=== PATIENT | male | born 2000 | race Caucasian/White ===

== ENCOUNTER 2024-01-27 21:34 | Emergency (ER) | payer OTHER ==
[2024-01-27 21:49] VITALS: BP 132/85; PULSE 107; RESP 19; TEMP 99.1; BMI 28.1
[2024-01-27] MEDS ORDERED: SUCRALFATE 1 GM/10 ML UNIT DOSE CUPS ONE (21:52)
[2024-01-27] MEDS: SUCRALFATE 1 GM/10 ML UNIT DOSE CUPS PO ONE (22:03)
[2024-01-27 22:23] LABS: HEMOGLOBIN 16.3 G/dL (11.7-16.9); MCHC 33.3 g/dl (32.0-35.9); MEAN CELL VOLUME 87.2 fl (80-96); MEAN PLT VOLUME 9.9 fl (7.5-11.1); PLATELET COUNT 267.3 10^3/uL (134-434); RBC 5.62 10^6/uL (4.00-5.60); RDW 13.6 % (11.9-15.9); WHITE BLOOD COUNT 8.9 10^3/uL (4.0-10.8)
[2024-01-27 22:47] LABS: ALBUMIN 4.8 g/dl (3.4-5.0); ALK PHOS 58 U/L (45-117); ANION GAP 9 mmol/L (4-13); BILIRUBIN,TOTAL 0.9 mg/dl (0.2-1); CALCIUM 10.3 mg/dl (8.5-10.1); CHLORIDE 99 mmol/L (98-107); CO2 32 mmol/L (21-32); CREATININE 1.1 mg/dl (0.6-1.3); GLUCOSE,RANDOM 115 mg/dl (74-106); POTASSIUM 4.3 mmol/L (3.5-5.1); SGOT/AST 22 U/L (15-37); SGPT/ALT 30 U/L (7-52); SODIUM 140 mmol/L (136-145); TOT PROT 7.6 g/dl (6.4-8.2)
== END 2024-01-27 23:14 | disposition home or self-care (01) ==
LOC: FER 21:34
DX: K29.80 Duodenitis without bleeding (principal); R10.13 Epigastric pain
CPT/HCPCS: 36415; 71046-TC-FY; 80053; 83690; 85025; 99284-25

== ENCOUNTER 2024-01-31 08:05 | Emergency (ER) | payer OTHER ==
[2024-01-31 08:32] VITALS: BP 131/78; PULSE 93; RESP 18; TEMP 97.8; BMI 28.1
[2024-01-31] MEDS ORDERED: ACETAMINOPHEN INJECTION 100 ML IVPB ONE (08:35)
[2024-01-31] MEDS ORDERED: MAG HYDROX/AL HYDROX/SIMETH 30 ML UNIT-DOSE CUP ONE (08:35)
[2024-01-31] MEDS ORDERED: FAMOTIDINE 20 MG/50 ML IVPB 20 MG/50 ML MG IVPB ONE (08:35)
[2024-01-31] MEDS: MAG HYDROX/AL HYDROX/SIMETH 30 ML UNIT-DOSE CUP PO ONE (08:51)
[2024-01-31] MEDS: ACETAMINOPHEN 1000 MG/100 ML BAG IVPB ONE (08:51)
[2024-01-31] MEDS: FAMOTIDINE 20 MG/50 ML IVPB 20 MG/50 ML MG IVPB ONE (08:52)
[2024-01-31 09:05] LABS: HEMATOCRIT 47.5 % (35.4-49); HEMOGLOBIN 15.7 G/dL (11.7-16.9); MCH 28.3 pg (25.7-33.7); MEAN CELL VOLUME 85.6 fl (80-96); MEAN PLT VOLUME 10.1 fl (7.5-11.1); PLATELET COUNT 262.3 10^3/uL (134-434); RBC 5.55 10^6/uL (4.00-5.60); RDW 13.9 % (11.9-15.9); WHITE BLOOD COUNT 10.6 10^3/uL (4.0-10.8)
[2024-01-31 09:12] LABS: ALBUMIN 4.6 g/dl (3.4-5.0); BILIRUBIN,TOTAL 1.1 mg/dl (0.2-1); CALCIUM 9.9 mg/dl (8.5-10.1); CREATININE 0.9 mg/dl (0.6-1.3); POTASSIUM 3.7 mmol/L (3.5-5.1); TOT PROT 7.3 g/dl (6.4-8.2)
[2024-01-31 09:21] LABS: PLATELET ESTIMATE ADEQUATE
== END 2024-01-31 13:45 | disposition home or self-care (01) ==
LOC: FER 08:05
PROC: 3E033GC Introduction of Other Therapeutic Substance into Peripheral Vein, Percutaneous Approach (ICD-10-PCS; principal; 2024-01-31)
PROC: 3E033NZ Introduction of Analgesics, Hypnotics, Sedatives into Peripheral Vein, Percutaneous Approach (ICD-10-PCS; 2024-01-31)
DX: R16.0 Hepatomegaly, not elsewhere classified (principal); R10.13 Epigastric pain
CPT/HCPCS: 36415; 74177-TC; 76700-TC; 80053; 83690; 85027; 99285-25; J0131; Q9967

== ENCOUNTER 2024-02-03 03:10 | Observation (INO) | payer OTHER ==
[2024-02-03 03:18] VITALS: BMI 27.2
[2024-02-03] MEDS ORDERED: ACETAMINOPHEN INJECTION 100 ML IVPB ONE (03:51)
[2024-02-03] MEDS: ACETAMINOPHEN 1000 MG/100 ML BAG IVPB ONE (03:56)
[2024-02-03 04:49] LABS: INR 2.01 (0.83-1.09); POTASSIUM 3.9 mmol/L (3.5-5.1); PROTHROMBIN TIME (PATIENT) 22.3 SEC (9.7-13.0)
[2024-02-03 04:51] LABS: ALBUMIN 3.4 g/dl (3.4-5.0); BASO % 0.3 % (0-2.0); CALCIUM 9.2 mg/dL (8.5-10.1); HEMATOCRIT 43.2 % (35.4-49); HEMOGLOBIN 14.9 GM/dL (11.7-16.9); LYMPH % 5.9 % (8-40); MCH 28.6 pg (25.7-33.7); MCHC 34.4 g/dl (32.0-35.9); MEAN CELL VOLUME 83.2 fl (80-96); MEAN PLT VOLUME 11.3 fl (7.5-11.1); MONO % 15.4 % (3.8-10.2); NEUT % 78.4 % (42.8-82.8); PLATELET COUNT 274 10^3/uL (134-434); RDW 13.3 % (11.9-15.9); WHITE BLOOD COUNT 19.4 K/mm3 (4.0-10.0)
[2024-02-03 04:52] LABS: BLOOD UREA NITROGEN 7.3 mg/dL (7-18)
[2024-02-03 04:54] LABS: CREATININE 0.8 mg/dL (0.55-1.3)
[2024-02-03 04:56] LABS: BILIRUBIN,TOTAL 2.3 mg/dL (0.2-1); TOT PROT 7.4 g/dl (6.4-8.2)
[2024-02-03] MEDS: SODIUM CHLORIDE 1,000 ML IV STA (05:10)
[2024-02-03] MEDS: PIPERACILLIN/TAZOB 4.5 GM 4.5 GM in DEXTROSE 5%-WATER 100 ML IVPB ONE (05:10)
[2024-02-03 07:49] LABS: EPITHELIAL CELLS 0-5 /hpf
[2024-02-03] MEDS ORDERED: ACETAMINOPHEN 650 MG/20.3 ML ORAL SOLUTION (CUPS) PO PRN (14:25)
[2024-02-03] MEDS: SODIUM CHLORIDE 1,000 ML IV SCH (14:58)
[2024-02-03] MEDS: PANTOPRAZOLE SODIUM 40 MG VIAL IVPUSH SCH (15:09)
[2024-02-03] MEDS: PHYTONADIONE 10 MG/1 ML AMP SQ ONE (15:21)
[2024-02-03] MEDS: AMPICILLIN NA/SULBACTAM NA 3 GM in SODIUM CHLORIDE 100 ML IVPB SCH (17:28)
[2024-02-04] MEDS ORDERED: BUPIVACAINE HCL/PF 0.25% (2.5MG/ML) 10 ML VIAL ONE (09:10)
[2024-02-04] MEDS ORDERED: HEPARIN NA (PORCINE) 5,000 UNITS/ML 1ML VIAL ONE (09:10)
[2024-02-04] MEDS ORDERED: cefOXitin SODIUM 2 GM VIAL (RESTRICTED TO ID) IVPB ONE (09:10)
[2024-02-04 09:27] LABS: INR 1.69 (0.83-1.09); PROTHROMBIN TIME (PATIENT) 18.8 SEC (9.7-13.0)
[2024-02-04] MEDS ORDERED: KETOROLAC TROMETHAMINE 30 MG/1 ML VIAL ONE (10:30)
[2024-02-04] MEDS ORDERED: SUGAMMADEX SODIUM 200 MG/2 ML VIAL ONE (10:30)
[2024-02-04] MEDS ORDERED: PROPOFOL 20 ML ONE (10:30)
[2024-02-04] MEDS ORDERED: DEXAMETHASONE SOD PHOSPHATE 4 MG/1 ML VIAL ONE (10:30)
[2024-02-04] MEDS ORDERED: ROCURONIUM BROMIDE 50 MG/5 ML VIAL ONE ×2 (10:30→11:43)
[2024-02-04] MEDS ORDERED: MIDAZOLAM HCL 2 MG/2 ML SINGLE DOSE VIAL ONE (10:30)
[2024-02-04] MEDS ORDERED: ONDANSETRON 4 MG/2 ML VIAL ONE (10:30)
[2024-02-04] MEDS ORDERED: FENTANYL CITRATE/PF 50 MCG/ML VIAL ONE ×4 (10:30→13:28)
[2024-02-04] MEDS ORDERED: LIDOCAINE HCL/PF 2% SDV 5ML VIAL ONE (10:30)
[2024-02-04] MEDS ORDERED: methylPREDNISolone NA SUCC 125 MG/2 ML VIAL ONE (10:31)
[2024-02-04] MEDS ORDERED: SEVOFLURANE 250 ML BTL ONE (10:31)
[2024-02-04] MEDS: AMPICILLIN NA/SULBACTAM NA 3 GM/100 ML PRE-DOCKED IVPB ONE (10:57)
[2024-02-04] MEDS: BUPIVACAINE HCL/PF 0.25% (2.5MG/ML) 10 ML VIAL IJ ONE (11:05)
[2024-02-04] MEDS ORDERED: ONDANSETRON 4 MG/2 ML VIAL IVPUSH PRN ×2 (12:57→13:09)
[2024-02-04] MEDS ORDERED: oxyCODONE HCL 5 MG TABLET PO PRN ×3 (12:57→13:09)
[2024-02-04] MEDS ORDERED: LACTATED RINGERS SOLUTION 1,000 ML IV SCH ×2 (13:00→13:09)
[2024-02-04] MEDS: ACETAMINOPHEN 650 MG/20.3 ML ORAL SOLUTION (CUPS) PO SCH (13:30)
[2024-02-04] MEDS: AMPICILLIN NA/SULBACTAM NA 3 GM in SODIUM CHLORIDE 100 ML IVPB SCH (18:00)
[2024-02-04] MEDS: LACTATED RINGERS SOLUTION 1,000 ML/1,000 ML INFUS.BAG IV SCH (18:11)
[2024-02-05 08:05] LABS: BASO % 0.6 % (0-2.0); HEMATOCRIT 38.9 % (35.4-49); HEMOGLOBIN 13.1 GM/dL (11.7-16.9); LYMPH % 9.8 % (8-40); MCH 28.7 pg (25.7-33.7); MCHC 33.6 g/dl (32.0-35.9); MEAN CELL VOLUME 85.4 fl (80-96); MEAN PLT VOLUME 10.6 fl (7.5-11.1); MONO % 9.1 % (3.8-10.2); NEUT % 80.5 % (42.8-82.8); PLATELET COUNT 263 10^3/uL (134-434); RBC 4.55 M/mm3 (4.00-5.60); RDW 13.3 % (11.9-15.9); WHITE BLOOD COUNT 7.8 K/mm3 (4.0-10.0)
[2024-02-05 08:13] LABS: INR 1.5 (0.83-1.09)
[2024-02-05 08:18] LABS: POTASSIUM 4.5 mmol/L (3.5-5.1)
[2024-02-05 08:24] LABS: BLOOD UREA NITROGEN 8.9 mg/dL (7-18); CALCIUM 8.4 mg/dL (8.5-10.1); MAGNESIUM 2.1 mg/dL (1.8-2.4)
[2024-02-05 08:26] LABS: CREATININE 0.6 mg/dL (0.55-1.3); PHOSPHOROUS 3.8 mg/dL (2.5-4.9)
[2024-02-05 08:28] LABS: TOT PROT 5.5 g/dl (6.4-8.2)
[2024-02-05 08:32] LABS: BILIRUBIN,TOTAL 0.9 mg/dL (0.2-1)
[2024-02-05 08:41] LABS: ALBUMIN 2.4 g/dl (3.4-5.0)
[2024-02-05] MEDS: PANTOPRAZOLE SODIUM 40 MG VIAL IVPUSH SCH (09:43)
[2024-02-05] MEDS: oxyCODONE HCL 5 MG TABLET PO PRN (11:09)
[2024-02-05 15:48] VITALS: BP 121/70; PULSE 88; RESP 18; TEMP 98.6
[2024-02-05] MEDS: AMOX TR/POT CLAV 875MG/125MG TABLETS (FP) PO SCH (18:03)
== END 2024-02-05 18:41 | disposition home or self-care (01) ==
LOC: FER 03:10 → J8W 13:38
PROVIDERS: ADMIT Internal Medicine; ATTEND Nurse Practitioner Family
PROC: 0FT44ZZ Resection of Gallbladder, Percutaneous Endoscopic Approach (ICD-10-PCS; principal; 2024-02-03)
PROC: 0F9040Z Drainage of Liver with Drainage Device, Percutaneous Endoscopic Approach (ICD-10-PCS; 2024-02-03)
PROC: 3E03329 Introduction of Other Anti-infective into Peripheral Vein, Percutaneous Approach (ICD-10-PCS; 2024-02-03)
PROC: 3E033NZ Introduction of Analgesics, Hypnotics, Sedatives into Peripheral Vein, Percutaneous Approach (ICD-10-PCS; 2024-02-03)
PROC: 3E0337Z Introduction of Electrolytic and Water Balance Substance into Peripheral Vein, Percutaneous Approach (ICD-10-PCS; 2024-02-03)
DX: K80.00 Calculus of gallbladder with acute cholecystitis without obstruction (principal); K82.A2 Perforation of gallbladder in cholecystitis; K82.A1 Gangrene of gallbladder in cholecystitis; K75.0 Abscess of liver; R79.1 Abnormal coagulation profile; Z29.9 Encounter for prophylactic measures, unspecified; D72.829 Elevated white blood cell count, unspecified; E80.6 Other disorders of bilirubin metabolism; R74.01 Elevation of levels of liver transaminase levels
CPT/HCPCS: 36415; 76705-TC; 80053; 81003; 81015; 83690; 83735; 84100; 85025; 85610; 88304-TC; 94010; 94760; 96365; 96372; 96375; 96376; 99285-25; G0378; J0131; J1644